=== PATIENT | female | born 1955 | race Caucasian/White ===

== ENCOUNTER → 2019-07-29 08:34 | Outpatient (BNVA) | payer MEDICAID, SELFPAY | PROVIDERS: Family Provider Family Medicine; PCP Physician Assistant Medical; Visit Provider Social Worker Clinical | DX: F33.1 Major depressive disorder, recurrent, moderate (principal) | CPT/HCPCS: 90791 ==

== ENCOUNTER → 2019-08-13 08:05 | Outpatient (BNVA) | payer MEDICAID, SELFPAY | PROVIDERS: Family Provider Family Medicine; PCP Physician Assistant Medical; Visit Provider Social Worker Clinical | DX: F33.1 Major depressive disorder, recurrent, moderate (principal) | CPT/HCPCS: 90834 ==

== ENCOUNTER → 2019-08-27 08:13 | Outpatient (BNVA) | payer MEDICAID, SELFPAY | PROVIDERS: Family Provider Family Medicine; PCP Physician Assistant Medical; Visit Provider Social Worker Clinical | DX: F33.1 Major depressive disorder, recurrent, moderate (principal) | CPT/HCPCS: 90834 ==

== ENCOUNTER → 2019-09-16 08:00 | Outpatient (BNVA) | payer MEDICAID, SELFPAY | PROVIDERS: Family Provider Family Medicine; PCP Physician Assistant Medical; Visit Provider Social Worker Clinical | DX: F33.1 Major depressive disorder, recurrent, moderate (principal) | CPT/HCPCS: 90834 ==

== ENCOUNTER → 2019-10-07 10:06 | Outpatient (BNVA) | payer MEDICAID, SELFPAY | PROVIDERS: Family Provider Family Medicine; PCP Physician Assistant Medical; Visit Provider Social Worker Clinical | DX: F33.1 Major depressive disorder, recurrent, moderate (principal) | CPT/HCPCS: 90834 ==

== ENCOUNTER → 2019-10-29 09:04 | Outpatient (BNVA) | payer MEDICAID, SELFPAY | PROVIDERS: Family Provider Family Medicine; PCP Physician Assistant Medical; Visit Provider Social Worker Clinical | DX: F33.1 Major depressive disorder, recurrent, moderate (principal); F41.1 Generalized anxiety disorder | CPT/HCPCS: 90834 ==

== ENCOUNTER 2022-06-11 04:08 | Inpatient (IN) | payer MEDICARE, MEDICAID, SELFPAY ==
[2022-06-11] VITALS (22 sets, daily range): BP systolic 105–165; BP diastolic 64–106; PULSE 81–103; RESP 13–25; TEMP 36.1–37.1; O2SAT 88–96; BMI 25.7
--- NOTE | 2022-06-11 | XR_ITS ---
WS: [id number] Left hip, C-arm fluoroscopy views, 06/11/2022 Clinical Data: OR PICS Comparison: Left hip, 06/11/2022 Findings: There are 3 orthopedic screws reducing an impacted fracture of the left femoral neck. XR/XR hip LT 2-3V wo/w pel* [id number] Impression: Internal fixation of left femoral neck fracture.
--- NOTE | 2022-06-11 04:23 | XRR_ITS ---
PROCEDURE INFORMATION: Exam: XR Left Femur Exam date and time: 06/11/2022 4:40 AM Age: 66 years old Clinical indication: Injury or trauma; Fall; Blunt trauma; Hip and thigh or upper leg; Left; Additional info: L thigh pain after fall TECHNIQUE: Imaging protocol: Radiologic exam of the left femur. Views: 2 views. COMPARISON: CT abdomen pelvis wo con [id number] 10/02/2015 6:22 PM FINDINGS: Bones/joints: Oblique left subcapital femoral neck fracture is seen with 0.2 cm medial displacement of the distal fracture fragment and 0.5 cm impaction. There is generalized osteopenia. There is no dislocation of the left femoral head from the acetabular fossa. Mild left hip degenerative changes are seen. Mild to moderate left sacroiliac joint and mild symphysis pubis degenerative changes. The remainder of the left femur shows no fractures or dislocations. The limitedly assessed left knee region appears grossly unremarkable. Soft tissues: There are no radiopaque foreign bodies. Notes: Followup radiographs may be obtained for complete assessment. XR/XR femur LT min 2V* [id number] IMPRESSION: 1. Oblique, minimally displaced, impacted left subcapital femoral neck fracture. 2. Generalized osteopenia.
--- NOTE | 2022-06-11 04:23 | W.ED.FALL ---
HPI - Fall General: Chief Complaint: Fall Stated Complaint: FALL Time Seen by Provider: 06/11/22 04:15 Source: patient History of Present Illness: 66-year-old lady who was awoken by a neighbor at 2:30 in the morning telling her her donkey had gotten out. In trying to get outside, she fell onto concrete steps on the left side and complains of left thigh pain. No head injury. No neck pain or spinal pain. No paresthesias. MD complaint: fall Onset (ago): hour(s) Fall from: standing Fall witnessed: no Place fall occurred: home Loss of consciousness: None Prolonged down time: no Symptoms prior to fall: none Context: tripped/slipped Location of injury - extremities: Left: thigh Associated symptoms-after fall: Denies abdominal pain, chest pain, headache(s) or neck pain Review of Systems Const: Denies: fever(s) Eyes: Denies: change in vision Card: Denies: chest pain Resp: Denies: dyspnea GI: Denies: abdominal pain or vomiting : Denies: flank pain Musc: Denies: neck pain or back pain Skin/Breast: Denies: rash Neuro: Denies: headache(s) PFSH ED PFSH: Social History Current gender identity: Female Physical Exam Const: COMMON NORMALS: no acute distress GENERAL APPEARANCE: cooperative; not ill appearing HENMT: COMMON NORMALS: normocephalic, atraumatic and Normal external nose present HEAD & SCALP: normocephalic and atraumatic FACE & SINUS: normal facial exam and face symmetric NOSE: Normal external nose present Eye: COMMON NORMALS: Equal, round and reactive pupils present and EOMs intact bilaterally PUPIL: Yes Equal, round and reactive pupils present Neck/C-Spine: COMMON NORMALS: full ROM GENERAL: Yes trachea midline CERVICAL SPINE: No Cervical spine tenderness Chest: CHEST: Yes Symmetrical chest wall rise Resp: COMMON NORMALS: normal respiratory effort, No use of accessory muscles and clear to auscultation bilaterally AUSCULTATION: clear to auscultation bilaterally Cardio: COMMON NORMALS: regular rate and regular rhythm RATE: regular rate RHYTHM: regular rhythm GI: COMMON NORMALS: Normal to inspection, nondistended, normoactive bowel sounds present, Soft to palpation and non-tender PALPATION: Yes Soft to palpation Extremity: NARRATIVE EXTREMITY EXAM: Exam the left lower extremity reveals tenderness over the hip anteriorly and laterally. There is pain with logroll testing/internal rotation. There is no deformity on exam. Neurovascularly intact distally. Course Vital Signs: Vital signs: Vital Signs Temperature 97.8 F 06/11/22 04:16 Pulse Rate 83 06/11/22 04:16 Respiratory Rate 16 06/11/22 04:16 Blood Pressure 153/79 06/11/22 04:16 Pulse Oximetry 93 06/11/22 04:16 Oxygen Delivery Me thod Room Air 06/11/22 04:16 MDM - Fall Medical Decision Making X-ray of the left femur reveals a likely nondisplaced subcapital femoral neck fracture. CT is pending to confirm. CT confirms nondisplaced, slightly impacted femoral neck fracture. Spoke with orthopedic surgery. They will see in consultation. Call out to hospitalist. Labs pending. CXR non acute. Hospitalist accepts. Lab Data Radiology Impressions Femur X-Ray 06/11/22 04:23 IMPRESSION: 1. Oblique, minimally displaced, impacted left subcapital femoral neck fracture. 2. Generalized osteopenia. Pelvis CT 06/11/22 05:25 IMPRESSION: Oblique, minimally displaced, impacted, left subcapital femoral fracture, as noted above. Generalized osteopenia. Chest X-Ray 06/11/22 05:27 IMPRESSION: No acute cardiopulmonary disease on the chest radiograph. Discharge Plan Discharge Patient Disposition: Admitted As Inpatient Clinical Impression: Closed fracture of left hip Qualifiers: Encounter type: initial encounter Qualified Code(s): S72.002A - Fracture of unspecified part of neck of left femur, initial encounter for closed fracture Condition: Stable Coding Level of Care Code ED [employer]yl[employer]rier for Stephanie German
--- NOTE | 2022-06-11 05:25 | CTR_ITS ---
PROCEDURE INFORMATION: Exam: CT Pelvis Without Contrast; Skeletal Exam date and time: 06/11/2022 5:36 AM Age: 66 years old Clinical indication: Injury or trauma; Fall; Blunt trauma (contusions or hematomas); Left; Hip; Additional info: Fall left hip pain TECHNIQUE: Imaging protocol: Computed tomography of the pelvis without contrast. Exam focused on the skeleton. Radiation optimization: All CT scans at this facility use at least one of these dose optimization techniques: automated exposure control; mA and/or kV adjustment per patient size (includes targeted exams where dose is matched to clinical indication); or iterative reconstruction. REPORTING DATA: Count of CT and Cardiac NM exams in prior 12 months: This patient has received 0 known CTs and 0 known cardiac nuclear medicine studies in the 12 months prior to the current study. COMPARISON: CT abdomen pelvis wo con [id number] 10/02/2015 6:22 PM RADIATION DOSE METRICS: Total DLP (mGy-cm): 473.36 FINDINGS: Stomach and bowel: Bowel: The noncontrast opacified loops of small bowel in the pelvis are unremarkable. The noncontrast opacified loops of colon in the pelvis appear unremarkable. Mild fecal material in the rectum. The lack of orally administered contrast material limits bowel assessment. Urinary bladder: The bladder is unremarkable. Reproductive: Status post prior hysterectomy. Intraperitoneal space: There is no pelvic lymphadenopathy or ascites. The inguinal regions are unremarkable. Vasculature: Moderate atherosclerotic vascular calcifications of the visualized lower abdominal aorta and iliac vessels. Bones/joints: Oblique left subcapital femoral neck fracture is seen with 0.2 cm medial displacement of the distal fracture fragment and 0.4 cm impaction (series 7, image 41). There is generalized osteopenia. Mild bilateral hip degenerative changes are seen. Moderate sacroiliac joint and symphysis pubis degenerative changes are seen. The pubic rami are normal. The sacroiliac joints appear normal. The sacrum and coccygeal osseous elements appear normal. Soft tissues: Tiny bilateral inguinal hernias are seen, containing peritoneal fat. Minimal left hip region subcutaneous soft tissue swelling is seen. The hip girdle musculature appears unremarkable. No hematoma or joint effusion seen. Other findings: If there is further clinical concern, MRI may be performed. CT/CT bony pelvis [id number] IMPRESSION: Oblique, minimally displaced, impacted, left subcapital femoral fracture, as noted above. Generalized osteopenia.
--- NOTE | 2022-06-11 05:27 | XRR_ITS ---
PROCEDURE INFORMATION: Exam: XR Chest Exam date and time: 06/11/2022 5:44 AM Age: 66 years old Clinical indication: Injury or trauma; Fall; Other: Hypoxia; Crushing; Additional info: Fall, hypoxia TECHNIQUE: Imaging protocol: Radiologic exam of the chest. Views: 1 view. COMPARISON: CR XR KUB [id number] 11/05/2015 1:34 PM FINDINGS: Lungs: Normal lung volumes. No interstitial or air space opacities seen. Left mid chest 0.6 x 0.6 cm calcified granuloma is seen. Pleural spaces: No pleural effusion. No pneumothorax. Heart/Mediastinum: Normal heart size. There is a mildly tortuous thoracic aorta. Midline trachea. Bones/joints: No acute osseous abnormalities seen. XR/XR chest 1V portable [id number] IMPRESSION: No acute cardiopulmonary disease on the chest radiograph.
[2022-06-11 06:14] LABS: Basophils # 0.1 10^3/uL (0.0-0.1); Basophils % 0.5 %; Eosinophils # 0.1 10^3/uL (0.0-0.8); Eosinophils % 0.3 %; Hematocrit 49.5 % (37.0-47.0); Hemoglobin 16.3 g/dL (11.5-15.3); Lymphocytes # 2.1 10^3/uL (0.8-4.8); Lymphocytes % 13.3 %; Mean Corpuscular HGB Conc 32.9 g/dL (30.0-36.0); Mean Corpuscular Hemoglobin 31.2 pg (28.0-34.0); Mean Corpuscular Volume 94.8 fl (81-99); Mean Platelet Volume 9.2 fL (7.4-10.4); Monocytes # 0.6 10^3/uL (0.2-0.9); Monocytes % 3.9 %; Neutrophils # 12.65 10^3/uL (1.8-7.7); Neutrophils % 81.4 %; Nucleated Red Blood Cells % 0 %; Platelet Count 256 10^3/cmm (130-400); Red Blood Count 5.22 10^6/uL (4.1-5.3); Red Cell Distribution Width 12.4 % (12.1-15.1); White Blood Count 15.5 10^3/uL (4.0-10.0)
--- NOTE | 2022-06-11 06:18 | P.HP_ITS ---
Providers/Chief Complaint Primary Care Provider: Mario Garay Chief Complaint: FALL History of Present Illness Maru Stevens is a 66 year old female with past medical history of fibromyalgia, anxiety, depression otherwise healthy female presented to the hospital today after she sustained a fall tripping on concrete blocks wearing crocs shoes. She says that the crocs is what did it. It was purely a mechanical fall and she did not have any preceding symptoms of lightheadedness nausea or dizziness. She says she got called by her neighbor that her donkey was running away and therefore she walked out. She is able to walk a block but getting short of breath and able to go up a flight of stairs without getting short of breath. Denies any history of heart disease, kidney disease, respiratory disease. Has been a smoker since age 16 and quit 3 years ago. She says she has been prescribed an albuterol inhaler in the past however is not and does not take it. Does not have a officially diagnosed history of COPD either. Has never had to use oxygen. Chest x-ray shows no acute cardiopulmonary disease however there is a left mid chest 0.6x1.[address] shows oblique minimally displaced impacted left subcapital femoral fracture. Generalized osteopenia. Dr. Smith was consulted from the ER. Medications/Allergies Home Medications Medication Instructions Recorded Confirmed Last Taken Type amitriptyline 150 mg tablet 150 mg PO DAILY 07/29/19 07/29/19 Unknown History donepezil 10 mg tablet (Aricept) 10 mg PO DAILY 07/29/19 07/29/19 Unknown History sertraline 50 mg tablet 50 mg PO DAILY 07/29/19 07/29/19 Unknown History tramadol 50 mg tablet 50 mg PO DAILY 07/29/19 07/29/19 Unknown History Allergies Allergy/AdvReac Type Severity Reaction Status Date / Time Penicillins Allergy Severe breathing Verified 07/29/19 13:21 affects sulfamethoxazole Allergy Severe Pancreas Verified 07/29/19 13:22 [From Bactrim] trimethoprim [From Bactrim] Allergy Severe Pancreas Verified 07/29/19 13:22 aspirin Allergy Intermediate Stomach Verified 07/29/19 13:20 issues Sulfa (Sulfonamide Allergy Mild Rash Verified 07/29/19 13:18 Antibiotics) PFSH Acute PFSH: Social History Current gender identity: Female Vitals/I&O/Wt Last Vital Signs Temp 97.8 F 06/11/22 04:16 Pulse 83 06/11/22 04:16 Resp 16 06/11/22 04:16 BP 153/79 06/11/22 04:16 Pulse Ox 93 06/11/22 04:16 O2 Del Method Room Air 06/11/22 04:16 Weight last 48 hrs Weight 68.039 kg Physical Exam Narrative: General: Alert oriented x3, patient seen laying in bed appearing comfortable at this time, no acute distress. HEENT: Normocephalic, atraumatic, EOMI, Cardio: Regular rate rhythm, normal S1-S2, Respiratory: Good bilateral air entry, no wheezes no rhonchi appreciated, clear to auscultation bilaterally GI: Abdomen soft, nontender, nondistended, bowel sounds + Extremities:no edema, no cyanosis, has a 3 cm linear deep laceration on left a nterior tamayo and another smaller wound right below it. Data 06/11/22 06:10 06/11/22 06:10 A&P Assessment and plan (1) Closed fracture of left hip: Qualifiers: Encounter type: initial encounter Qualified Code(s): S72.002A - Fracture of unspecified part of neck of left femur, initial encounter for closed fracture Plan #Left femoral fracture #Anxiety, depression #Fibromyalgia #History of smoking ? Morphine 2 mg every 4 hours as needed for pain ? N.p.o. for potential surgery today ? Orthopedic surgery consulted from ER. Dr. Smith will see patient in consultation ? Denies a history of kidney disease, insulin use, diabetes, heart disease. Able to do greater than 4 METS on a daily basis. ? Continue donepezil, sertraline. I will hold amitriptyline ? Heparin SQ twice daily for DVT prophylaxis -Baseline EKG did not show any acute ischemic changes ? Chest x-ray reviewed ? CBC reviewed. CMP pending at this time. I will order PT/INR ? PT OT after surgery Full code She says her daughter Summer Julien may obtain any kind of medical information she asks for and should be updated if she calls however in case she is unable to make her own medical decisions she would like to appoint her sister Vane Joseph. [phone]. Her sister does not live in town. Attestations Medical Necessity Statement*: Greater than 2 midnight stay for repair of left femoral fracture. Other Coding Information Focused coding review requested Diagnoses Closed fracture of left hip S72.002A Encounter type: initial encounter
[2022-06-11 06:33] LABS: Alanine Aminotransferase 36 U/L (0-33); Albumin Level 4.5 g/dL (3.5-5.2); Alkaline Phosphatase 145 U/L (35-105); Anion Gap 13.4 (5-19); Aspartate Amino Transferase 41 U/L (0-32); Blood Urea Nitrogen 9 mg/dL (8-23); C Reactive Protein 7.5 mg/L (0.0-4.9); Calcium 9.1 mg/dL (8.5-10.5); Carbon Dioxide 25 mmol/L (22-29); Chloride 99 mmol/L (98-107); Creatinine Clr Calc Pharmacy 59.0628; Globulin 2.8 g/dL (1.3-4.6); Glomerular Filtration Rate 62.8 mL/min (90-130); Glucose 108 mg/dL (65-115); Osmolality Calculated 277 mOsm/kg (285-295); Potassium 3.4 mmol/L (3.5-5.1); Sodium 134 mmol/L (136-145); Total Bilirubin 0.5 mg/dL (0.15-1.2); Total Protein 7.3 g/dL (6.6-8.7)
[2022-06-11] MEDS: morphine 4 mg/mL SDV 1 mL IVP (06:35)
--- NOTE | 2022-06-11 07:57 | PC.NURSE ---
PT REFUSES [facility] CATH INSERTION, EDUC. PT OF BENEFITS OF [facility]. PT IS ALSO REFUSING [facility] CATH DURING AND AFTER SURGERY. PT ADAMANTLY REFUSES.
--- NOTE | 2022-06-11 08:37 | ECG_ITS ---
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 Measurements Intervals [place] Rate: 92 P: 147 PA: 247 QRS: 6 QRSD: 121 T: 149 QT: 375 QTc: 465 Interpretive Statements ECTOPIC ATRIAL RHYTHM WITH FIRST DEGREE AV BLOCK MODERATE INTRAVENTRICULAR CONDUCTION DELAY [110+ ms QRS DURATION] NONSPECIFIC T-WAVE ABNORMALITY No previous ECG available for comparison Electronically Signed On 06-11-2022 10:29:08 CDT by Neftali Iraheta M.D. [email or web address]
[2022-06-11] MEDS: heparin 5,000 unit/mL INJ 1 mL 5000 UNIT SUBCUT ×2 (09:21→21:27)
[2022-06-11] MEDS: sodium chloride 0.9% 1,000 ML 75 ML IV ×2 (09:28→21:28)
[2022-06-11] MEDS: sodium chloride 0.9% 1,000 ML 75 ML (12:29)
--- NOTE | 2022-06-11 12:33 | PM.CONSULT ---
Providers/Reason For Consult Consulting Physician/Specialty*: Omayra Lloyd MD Reason for Consult*: Left Subcapital Hip Fracture Requesting Physician: Everardo Pack MD Attending Physician: Allen Mcdowell MD Primary Care Provider: Mario Garay History of Present Illness History of Present Illness Maru Stevens is a 66 year old female who was in her usual state of health, which includes a history of fibromyalgia, depression, and anxiety, when she fell on some concrete blocks earlier this morning. The patient notes it was a mechanical fall without preceding dizziness or other reason for her fall. Reportedly, she was called by her neighbor that her donkey was running away, and she walked outside in [facility] and tripped falling suffering a left subcapital hip fracture which is impacted. She presented to the emergency department with minimal other complaints. Review of Systems Const: Denies: fever(s) Eyes: Denies: change in vision Card: Denies: chest pain Resp: Denies: dyspnea GI: Denies: abdominal pain or vomiting : Denies: flank pain Musc: Denies: neck pain or back pain Skin/Breast: Denies: rash Neuro: Denies: headache(s) Medications/Allergies Home Medications Medication Instructions Recorded Confirmed Last Taken Type amitriptyline 150 mg tablet 300 mg PO BEDTIME 07/29/19 06/11/22 Unknown History tramadol 50 mg tablet 50 mg PO Q6H PRN Pain 07/29/19 06/11/22 Unknown History biotin 5 mg capsule 5 mg PO DAILY 06/11/22 06/11/22 Unknown History cholecalciferol (vitamin D3) 50 50 mcg PO DAILY 06/11/22 06/11/22 Unknown History mcg (2,000 unit) capsule (Vitamin D3) cyclobenzaprine 5 mg tablet 5 mg PO TID PRN Pain 06/11/22 06/11/22 Unknown History famotidine 20 mg tablet 20 mg PO BID 06/11/22 06/11/22 Unknown History memantine 5 mg tablet 5 mg PO BID 06/11/22 06/11/22 Unknown History vitamin E 268 mg (400 unit) capsule 268 mg PO DAILY 06/11/22 06/11/22 Unknown History Allergies Allergy/AdvReac Type Severity Reaction Status Date / Time Penicillins Allergy Severe breathing Verified 06/11/22 07:39 affects sulfamethoxazole Allergy Severe Pancreas Verified 06/11/22 07:39 [From Bactrim] trimethoprim [From Bactrim] Allergy Severe Pancreas Verified 06/11/22 07:39 aspirin Allergy Intermediate Stomach Verified 06/11/22 07:39 issues Sulfa (Sulfonamide Allergy Mild Rash Verified 06/11/22 07:39 Antibiotics) Current Medications Generic Name Dose Route Start Last Admin Trade Name Michaelq PRN Reason Stop Dose Admin Donepezil HCl 10 mg 06/11/22 09:00 06/11/22 09:23 Donepezil 5 Mg Tablet PO Not Given DAILY SETH Heparin Sodium (Porcine) 5,000 unit 06/11/22 07:15 06/11/22 09:21 Heparin 5,000 Unit/Ml Inj 1 Ml SUBCUT 5,000 unit Q12H SETH Administration Sodium Chloride 1,000 mls @ 75 mls/hr 06/11/22 07:15 06/11/22 09:28 Sodium Chloride 0.9% IV 75 mls/hr .[id number] SETH Administration Sertraline HCl 50 mg 06/11/22 09:00 06/11/22 09:23 Sertraline 50 Mg Tablet PO Not Given DAILY SETH PFSH Acute PFSH: Social History Current gender identity: Female Vitals/I&O/Wt Last Vital Signs Temp 98.5 F 06/11/22 08:00 Pulse 81 06/11/22 08:40 Resp 16 06/11/22 08:40 BP 156/83 06/11/22 08:00 Pulse Ox 95 06/11/22 08:40 O2 Del Method Room Air 06/11/22 08:40 Weight last 48 hrs Weight 146 lb 12.8 oz Weight 150 lb Physical Exam Const: COMMON NORMALS: no acute distress, average body habitus, patient oriented x3 and alert GENERAL APPEARANCE: cooperative and comfortable ORIENTATION/CONSCIOUSNESS: Yes awake HENMT: COMMON NORMALS: normocephalic and atraumatic HEAD & SCALP: normocephalic and atraumatic Eye: GENERAL EYE: appearance normal, both eyes and all related structures Chest: COMMONS NORMALS: normal inspection of the chest Resp: COMMON NORMALS: normal respiratory effort EFFORT & INSPECTION: Yes able to speak in complete sentences and Yes symmetric chest movement Extremity: LEFT LOWER EXTREMITY: Yes hip joint Left hip: Yes inspection (No significant ecchymosis), Yes ROM (Not evaluated due to pain) and Yes neurovascular exam (Intact distally) and Yes lower leg (Anterior abrasion secondary to her fall) Neuro: COMMON NORMALS: patient oriented x3 SENSORIUM/ORIENTATION: Yes alert Psych: COMMON NORMALS: mental status grossly normal APPEARANCE: Yes grossly normal ATTITUDE: Yes calm and Yes engaged ATTENTION/CONCENTRATION: Yes attention grossly intact Skin: COMMON NORMALS: no rashes or lesions noted GENERAL SKIN EXAM: no rashes or lesions noted Data 06/11/22 06:10 06/11/22 06:10 Xray Ortho: My impression: I have personally reviewed 4 views of the patient's left femur. The patient demonstrates findings consistent with a valgus impacted left subcapital hip fracture with minimal displacement. A&P Assessment and plan (1) Subcapital fracture of left hip: Patient was admitted through the emergency department early this morning. She was found at that time to have an abrasion to the anterior aspect of her tibia and also an impacted valgus left subcapital hip fracture. She was admitted to the hospitalist team and presents now for definitive surgical intervention. Patient was seen and evaluated regarding her left subcapital hip fracture. Risks and complications were discussed. Consents were signed. The patient understands the surgical procedure. Coding Level of Care Code Acute Code for [facility] Diagnoses Subcapital fracture of left hip S72.012A
--- NOTE | 2022-06-11 12:40 | PC.NURSE ---
PT LEFT M/S FLOOR AT APPROX 1115
[2022-06-11] MEDS: CELEcoxib 200 mg Capsule 400 MG PO ×2 (12:57)
[2022-06-11] MEDS: clindamycin 600 MG/50 ML PREMIX 100 MG IV ×2 (12:58→21:28)
--- NOTE | 2022-06-11 12:59 | P.ANESASSM_ITS ---
Pre-Anesthetic Assessment Height/Weight: Height 1.63 m Weight 66.587 kg Temp Pulse Resp BP Pulse Ox O2 Del Method 98.5 F 81 16 156/83 95 Room Air 06/11/22 08:00 06/11/22 08:40 06/11/22 08:40 06/11/22 08:00 06/11/22 08:40 06/11/22 08:40 Preop Diagnosis: Left subcapital hip fracture Operation Date: 06/11/22 13:30 Proposed Procedures p Open Reduction Hip(Left) - Omayra Lloyd MD Familial anesthetic complications: none Was Beta Allison taken within 24 hours: N/A Was Clonidine taken within 24 hours: N/A Social Tobacco and No alcohol Exam alert, oriented x 3 and regular rate & rhythm Airway Submandibular: within normal limits Cervical ROM: within normal limits Mallampati: Class II Dentition: false Pulmonary Chronic Obstructive Pulmonary Disease GI Gastroesophageal Reflux Disease Neuropsych Cerebrovascular Accident (h/o 10yrs ago, no deficit) Anesthetic Plan ASA status: 3 Anesthesia: General Medications/Allergies Home Medications Medication Instructions Recorded Confirmed Last Taken Type amitriptyline 150 mg tablet 300 mg PO BEDTIME 07/29/19 06/11/22 Unknown History tramadol 50 mg tablet 50 mg PO Q6H PRN Pain 07/29/19 06/11/22 Unknown History biotin 5 mg capsule 5 mg PO DAILY 06/11/22 06/11/22 Unknown History cholecalciferol (vitamin D3) 50 50 mcg PO DAILY 06/11/22 06/11/22 Unknown History mcg (2,000 unit) capsule (Vitamin D3) cyclobenzaprine 5 mg tablet 5 mg PO TID PRN Pain 06/11/22 06/11/22 Unknown History famotidine 20 mg tablet 20 mg PO BID 06/11/22 06/11/22 Unknown History memantine 5 mg tablet 5 mg PO BID 06/11/22 06/11/22 Unknown History vitamin E 268 mg (400 unit) capsule 268 mg PO DAILY 06/11/22 06/11/22 Unknown History Allergies Allergy/AdvReac Type Severity Reaction Status Date / Time Penicillins Allergy Severe breathing Verified 06/11/22 07:39 affects sulfamethoxazole Allergy Severe Pancreas Verified 06/11/22 07:39 [From Bactrim] trimethoprim [From Bactrim] Allergy Severe Pancreas Verified 06/11/22 07:39 aspirin Allergy Intermediate Stomach Verified 06/11/22 07:39 issues Sulfa (Sulfonamide Allergy Mild Rash Verified 06/11/22 07:39 Antibiotics) Current Medications Generic Name Dose Route Start Last Admin Trade Name Minnie PRN Reason Stop Dose Admin Donepezil HCl 10 mg 06/11/22 09:00 06/11/22 09:23 Donepezil 5 Mg Tablet PO Not Given DAILY SETH Heparin Sodium (Porcine) 5,000 unit 06/11/22 07:15 06/11/22 09:21 Heparin 5,000 Unit/Ml Inj 1 Ml SUBCUT 5,000 unit Q12H SETH Administration Sodium Chloride 1,000 mls @ 75 mls/hr 06/11/22 07:15 06/11/22 09:28 Sodium Chloride 0.9% IV 75 mls/hr .[id number] SETH Administration Clindamycin HCl/Dextrose 600 mg in 50 mls @ 100 mls/hr 06/11/22 12:39 06/11/22 12:58 Cleocin IV 06/11/22 13:08 100 mls/hr [employer] ONE Administration Protocol Sertraline HCl 50 mg 06/11/22 09:00 06/11/22 09:23 Sertraline 50 Mg Tablet PO Not Given DAILY SETH PFSH Anesthesia Social History Current gender identity: Female Data Anesthesia 06/11/22 06:10 06/11/22 06:10 Short CBC 06/11/22 Range/Units 06:10 WBC 15.5 H (4.0-10.0) 10^3/uL Hgb 16.3 H (11.5-15.3) g/dL Hct 49.5 H (37.0-47.0) % MCV 94.8 (81-99) fl Plt Count 256 (130-400) 10^3/cmm Neut % (Auto) 81.4 % Neut # (Auto) 12.65 H (1.8-7.7) 10^3/uL BMP 06/11/22 06:10 Sodium 134 L Potassium 3.4 L Chloride 99 Carbon Dioxide 25 BUN 9 Creatinine 0.9 Glucose 108 Calcium 9.1 Liver Function 06/11/22 Range/Units 06:10 Total Bilirubin 0.5 (0.15-1.2) mg/dL AST 41 H (0-32) U/L ALT 36 H (0-33) U/L Alkaline Phosphatase 145 H (35-105) U/L Albumin 4.5 (3.5-5.2) g/dL Coags 06/11/22 06:10 C-Reactive Protein 7.5 H Cardiac Studies: No Data to Display
[2022-06-11] MEDS: vancomycin 1,000 MG SDV 1000 MG XX (13:48)
[2022-06-11] MEDS: lidocaine-epi 1% 20 mL INJ INJECTION (14:15)
--- NOTE | 2022-06-11 14:26 | P.OP_ITS ---
Operative Report Date of procedure: June 11, 2022 Pre-op diagnosis: Valgus impacted left subcapital hip fracture Post-op diagnosis: Valgus impacted left subcapital hip fracture Procedure done: Open reduction internal fixation left valgus impacted subcapital hip fracture with cannulated screws x3 Implants: Cannulated screws x3: 90 mm, and 2 x 95 mm Specimens removed/disposition: None Pathology: none sent Surgeon: Omayra Lloyd Special Machine Stitcher: None Anesthesia: General (Per LMA, ASA 3) Estimated blood loss (mL): 20 IV fluids (mL): 600 Urine output (mL): 700 Complications: None Findings: Valgus impacted subcapital left hip fracture Condition: stable Disposition: PACU (Then return to floor for postoperative rehabilitation and pain management) Brief History: Maru Stevens is a 66 year old female who was in her usual state of health, which includes a history of fibromyalgia, depression, and anxiety, when she fell on some concrete blocks earlier this morning.? The patient notes it was a mechanical fall without preceding dizziness or other reason for her fall.? Reportedly, she was called by her neighbor that her donkey was running away, and she walked outside in [facility] and tripped falling suffering a left subcapital hip fracture which is impacted.? She presented to the emergency department with minimal other complaints. It was discussed with the patient that she would require a open reduction internal fixation with cannulated screws. Risks and complications were discussed. The patient was consented for the surgery and signed consent. She was in agreement with the treatment plan. Procedure: Patient is brought to the operating theater and after undergoing adequate general anesthesia per LMA, ASA 3, the patient was transferred to the fracture table. Fluoroscopy was positioned so that we could visualize the fracture in AP and lateral planes. Maintenance of position of was confirmed. Being satisfied with the position of the femoral head, the leg was then prepped with DuraPrep. A shower curtain style drape was utilized to drape out the patient's left lower extremity. Patient's leg was marked in the preoperative holding area and these markings were visualized. A surgical pause was performed. We confirmed administration of preoperative IV clindamycin as well as the site and side of surgery along with availability of equipment. Fluoroscopy was utilized and an incision was made in appropriate position to allow placement of 3 cannulated screws using the Rocco gun as a guide. The most inferior of the inverted triangle wire was placed first. Optimal position was determined with fluoroscopy in AP and lateral. The remaining guidewires were then placed also under fluoroscopic guidance in AP and lateral planes. The Rocco gun was removed and the length of guidewires was measured. The cannulated screws were then placed over the guidewire. Guidewires were advanced to appropriate position and subsequently hand tightened. Position of the screws was confirmed in AP and lateral. Being satisfied with the position of the screws, guidewires were removed. AP and lateral images were obtained utilizing fluoroscopy. Being satisfied the wound was irrigated, closure was then accomplished with 0 Vicryl in the fascial tissues and 2-0 Monocryl in the subcutaneous tissues. Skin was closed with a running 3-0 Monocryl. The wound was then injected with 20 cc of bupivacaine and lidocaine mixed with epinephrine. Sterile dressing was then placed consisting of Dermabond, Steri-Strips and OpSite. The patient was returned the recovery room in satisfactory condition. There were no complications. There were no specimens. Related Problem List Diagnoses (1) Subcapital fracture of left hip:
--- NOTE | 2022-06-11 14:36 | ANE.PACU2 ---
Inpatient post-anesthesia follow up: Vital signs: Temperature 97.0 F Pulse Rate 82 Respiratory Rate 13 Blood Pressure 138/73 Pulse Oximetry 94 Oxygen Delivery Me thod Simple Mask Oxygen Flow Rate 6 Fraction of Inspir ed Oxygen Hydration adequate: Yes Nausea and vomiting: No Pain level: 0 Mental status: Baseline
[2022-06-11] MEDS: calcium carb-vit d 600mg/400unit 1 Tablet 1 EACH PO (18:28)
[2022-06-11] MEDS: acetaminophen 500 mg Tablet 1000 MG PO (18:28)
[2022-06-11] MEDS: docusate sodium 100 mg Capsule PO (18:28)
[2022-06-11] MEDS: oxyCODONE 5 mg IR Tab/Cap PO (21:28)
[2022-06-12] VITALS (11 sets, daily range): BP systolic 105–146; BP diastolic 64–76; PULSE 68–89; RESP 16–20; TEMP 36.4–37.1; O2SAT 90–99
[2022-06-12] MEDS: acetaminophen 500 mg Tablet 1000 MG PO ×3 (01:07→18:04)
[2022-06-12] MEDS: enoxaparin 30 mg/0.3 mL Syringe SUBCUT (03:33)
[2022-06-12] MEDS: clindamycin 600 MG/50 ML PREMIX 100 MG IV ×2 (03:35→12:52)
[2022-06-12 04:36] LABS: Basophils % 0.1 %; Hematocrit 39.9 % (37.0-47.0); Hemoglobin 13.2 g/dL (11.5-15.3); Lymphocytes # 1.4 10^3/uL (0.8-4.8); Lymphocytes % 13.6 %; Mean Corpuscular HGB Conc 33.1 g/dL (30.0-36.0); Mean Corpuscular Hemoglobin 31.3 pg (28.0-34.0); Mean Corpuscular Volume 94.5 fl (81-99); Mean Platelet Volume 9.8 fL (7.4-10.4); Monocytes # 0.6 10^3/uL (0.2-0.9); Monocytes % 5.2 %; Neutrophils # 8.52 10^3/uL (1.8-7.7); Neutrophils % 80.6 %; Nucleated Red Blood Cells % 0 %; Platelet Count 217 10^3/cmm (130-400); Red Blood Count 4.22 10^6/uL (4.1-5.3); Red Cell Distribution Width 12.3 % (12.1-15.1); White Blood Count 10.6 10^3/uL (4.0-10.0)
[2022-06-12 05:01] LABS: Anion Gap 11.7 (5-19); Blood Urea Nitrogen 9 mg/dL (8-23); Calcium 8.2 mg/dL (8.5-10.5); Carbon Dioxide 24 mmol/L (22-29); Chloride 100 mmol/L (98-107); Glucose 112 mg/dL (65-115); Osmolality Calculated 273 mOsm/kg (285-295); Potassium 3.7 mmol/L (3.5-5.1); Sodium 132 mmol/L (136-145)
[2022-06-12] MEDS: docusate sodium 100 mg Capsule PO ×2 (08:51→18:04)
[2022-06-12] MEDS: multivitamin therapeutic Tablet 1 TAB PO (08:51)
[2022-06-12] MEDS: calcium carb-vit d 600mg/400unit 1 Tablet 1 EACH PO ×2 (08:51→18:04)
[2022-06-12] MEDS: sodium chloride 0.9% 1,000 ML 75 ML IV (08:53)
--- NOTE | 2022-06-12 14:12 | PM.PN ---
Subjective Subjective: Patient was seen and examined this morning, she was complaining of left lower extremity pain rated 6 out of 10, no other complaint. Medications: Medication Review Details: Generic Name Dose Route Start Last Admin Trade Name Minnie PRN Reason Stop Dose Admin Acetaminophen 1,000 mg 06/11/22 16:00 06/12/22 08:51 Acetaminophen 50 0 Mg Tablet PO 1,000 mg Q8H SETH Administration Calcium Carbonate 1 each 06/11/22 18:00 06/12/22 08:51 Calcium Carb-Vit D 600mg/400unit 1 Tablet PO 1 each BID SETH Administration Docusate Sodium 100 mg 06/11/22 18:00 06/12/22 08:51 Docusate Sodium 100 Mg Capsule PO 100 mg BID SETH Administration Donepezil HCl 10 mg 06/11/22 09:00 06/12/22 08:51 Donepezil 5 Mg T ablet PO Not Given DAILY SETH Enoxaparin Sodium 30 mg 06/12/22 02:30 06/12/22 03:33 Enoxaparin 30 Mg /0.3 Ml Syringe SUBCUT 30 mg Q24H SETH Administration Sodium Chloride 1,000 mls @ 75 ml s/hr 06/11/22 07:15 06/12/22 08:53 Sodium Chloride 0.9% IV 75 mls/hr .[id number] SETH Administration Multivitamins Ther apeutic 1 tab 06/12/22 09:00 06/12/22 08:51 Multivitamin The rapeutic Tablet PO 1 tab DAILY SETH Administration Oxycodone HCl 5 - 10 mg 06/11/22 15:43 06/11/22 21:28 Oxycodone 5 Mg I r Tab/Cap PO 5 mg Q4H PRN Administration MODERATE TO SEVER E PAIN Sertraline HCl 50 mg 06/11/22 09:00 06/12/22 08:51 Sertraline 50 Mg Tablet PO Not Given DAILY SETH Vitals/I&O/Wt Last Vital Signs Temp 97.7 F 06/12/22 12:00 Pulse 76 06/12/22 12:00 Resp 18 06/12/22 12:00 BP 109/64 06/12/22 12:00 Pulse Ox 95 06/12/22 12:00 O2 Del Method Nasal Cannula 06/12/22 12:00 O2 Flow Rate 2 06/12/22 08:38 06/11/22 06/12/22 06/12/22 22:59 06:59 14:59 Intake Total 900 / 1560 100 / 1660 1146. / 1146.25 Output Total 600 / 2019 600 / 2620 Balance 300 / -460 -500 / -960 1146.25 / 1146.25 Weight last 48 hrs Weight 66.587 kg Weight 68.039 kg Physical Exam Const: COMMON NORMALS: patient oriented x3 HENMT: COMMON NORMALS: normocephalic and atraumatic HEAD & SCALP: normocephalic and atraumatic Resp: COMMON NORMALS: clear to auscultation bilaterally AUSCULTATION: clear to auscultation bilaterally Cardio: COMMON NORMALS: regular rate, regular rhythm, S1 normal heart sound present, S2 normal heart sound present, No gallops present (Cardio), No murmurs present (Cardio), No rub (Cardio) and Peripheral pulses 2+ throughout RATE: regular rate RHYTHM: regular rhythm HEART SOUNDS: S1 normal heart sound present and S2 normal heart sound present PERIPHERAL PULSES: Peripheral pulses 2+ throughout GI: COMMON NORMALS: Normal to inspection, nondistended, normoactive bowel sounds present, Soft to palpation, non-tender, No hepatosplenomegaly present and no masses AUSCULTATION: Yes normoactive bowel sounds PALPATION: Yes Soft to palpation and Yes No hepatosplenomegaly present RECTAL EXAM: deferred Extremity: COMMON NORMALS: no clubbing, cyanosis or edema and no pedal edema Neuro: COMMON NORMALS: patient oriented x3 Urinary Catheter Management: Mina: Cath Placed During This Visit: yes Reason for Continuing Indwelling Catheter: Other Urinary Catheter Date of Insertion: 06/11/22 Urinary Catheter Time of Insertion: 13:25 Data 06/12/22 03:30 06/12/22 03:30 A&P Assessment and plan (1) Closed fracture of left hip: Qualifiers: Encounter type: initial encounter Qualified Code(s): S72.002A - Fracture of unspecified part of neck of left femur, initial encounter for closed fracture Plan 66 year old female with past medical history of fibromyalgia, anxiety, depression was admitted for the management of left femoral fracture after she experienced a mechanical fall on concrete blocks. Assessment: #Left femoral fracture CT scan pelvis: Oblique, minimally displaced, impacted, left subcapital femoral fracture S/p: ORIF,left valgus impacted subcapital hip fracture with cannulated screws x3. Pain control Bowel regimen Orthopedic is primary PT on board DVT prophylaxis on Lovenox CODE STATUS full code Attestations Medical Necessity Statement*: Patient is to be in hospital for the management of left femoral fracture. Coding Level of Care Code 75453 Diagnoses Closed fracture of left hip S72.002A Encounter type: initial encounter
[2022-06-12] MEDS: oxyCODONE 5 mg IR Tab/Cap PO ×2 (15:44→20:23)
--- NOTE | 2022-06-12 19:31 | P.PN_ITS ---
Subjective Subjective: Patient is up in a chair, her Mina has not been removed as she did have retention at the time she was brought to the operating room. She is working with physical therapy. Vitals/I&O/Wt Last Vital Signs Temp 97.6 F 06/12/22 15:43 Pulse 76 06/12/22 15:43 Resp 18 06/12/22 15:44 BP 146/75 06/12/22 15:43 Pulse Ox 95 06/12/22 15:44 O2 Del Method Nasal Cannula 06/12/22 15:43 O2 Flow Rate 2 06/12/22 08:38 06/12/22 06/12/22 06/12/22 06:59 14:59 22:59 Intake Total 100 / 1660 1146.25 / 1146.25 120 / 1266.25 Output Total 600 / 2620 900 / 900 Balance -500 / -960 1146.25 / 1146.25 -780 / 366.25 Weight last 48 hrs Weight 146 lb 12.8 oz Weight 150 lb Physical Exam Const: COMMON NORMALS: no acute distress, average body habitus, patient oriented x3 and alert GENERAL APPEARANCE: cooperative and comfortable ORIENTATION/CONSCIOUSNESS: Yes awake HENMT: COMMON NORMALS: normocephalic and atraumatic HEAD & SCALP: normocephalic and atraumatic Eye: GENERAL EYE: appearance normal, both eyes and all related structures Chest: COMMONS NORMALS: normal inspection of the chest Resp: COMMON NORMALS: normal respiratory effort EFFORT & INSPECTION: Yes able to speak in complete sentences and Yes symmetric chest movement Extremity: LEFT LOWER EXTREMITY: Yes hip joint (No complaints of significant pain.) Left hip: Yes ROM (Not evaluated.) and Yes neurovascular exam (No evidence of DVT.) Neuro: COMMON NORMALS: patient oriented x3 SENSORIUM/ORIENTATION: Yes alert Psych: COMMON NORMALS: mental status grossly normal APPEARANCE: Yes grossly normal ATTITUDE: Yes calm and Yes engaged ATTENTION/CONCENTRATION: Yes attention grossly intact Skin: COMMON NORMALS: no rashes or lesions noted GENERAL SKIN EXAM: no rashes or lesions noted Urinary Catheter Management: Mina: Cath Placed During This Visit: yes Reason for Continuing Indwelling Catheter: Other Urinary Catheter Date of Insertion: 06/11/22 Urinary Catheter Time of Insertion: 13:25 Data 06/12/22 03:30 06/12/22 03:30 A&P Assessment and plan (1) Subcapital fracture of left hip: Yesterday, the patient underwent open reduction internal fixation of a subcapital hip fracture which was minimally displaced and had valgus impaction. She tolerated the procedure well. She is working with physical therapy. Plans are that she will be able to return home weightbearing as tolerated. Attestations Medical Necessity Statement*: Continued physical therapy following ORIF hip fracture Coding Level of Care Code Acute Code for [facility] Diagnoses Subcapital fracture of left hip S72.012A
[2022-06-13] VITALS (7 sets, daily range): BP systolic 120–187; BP diastolic 74–78; PULSE 70–78; RESP 16–18; TEMP 36.6–36.9; O2SAT 90–97
[2022-06-13] MEDS: acetaminophen 500 mg Tablet 1000 MG PO ×2 (00:51→08:57)
[2022-06-13] MEDS: enoxaparin 30 mg/0.3 mL Syringe SUBCUT (03:12)
[2022-06-13] MEDS: oxyCODONE 5 mg IR Tab/Cap PO (08:56)
[2022-06-13] MEDS: docusate sodium 100 mg Capsule PO (08:57)
[2022-06-13] MEDS: multivitamin therapeutic Tablet 1 TAB PO (08:58)
[2022-06-13] MEDS: sertraline 50 mg Tablet PO (08:58)
[2022-06-13] MEDS: calcium carb-vit d 600mg/400unit 1 Tablet 1 EACH PO (08:58)
[2022-06-13] MEDS: donepezil 5 MG Tablet 10 MG PO (08:58)
--- NOTE | 2022-06-13 10:48 | PM.DCS ---
Discharge Providers Date of Admission: 06/11/22 06:03 Date of Discharge: June 13, 2022 Attending Provider at Admission: Yoana Lopez MD Attending Provider at Discharge: Martina Vieyra MD Primary Care Provider: Mario Garay Diagnoses at Discharge Discharge Diagnosis (1) Subcapital fracture of left hip: Status: Acute Reason for Visit Reason for Visit: FALL Hospital Course Hospital Course Maru Stevens is a 66 year old female who was in her usual state of health, which includes a history of fibromyalgia, depression, and anxiety, when she fell on some concrete blocks while running after her donkey. She suffered a subcapital fracture of the left hip. She underwent Open reduction internal fixation left valgus impacted subcapital hip fracture with cannulated screws x3 on 06/11/22. Tolerated the procedure well. She has intermittent pain which is currently well controlled on pain medications. She tolerated procedure well. Evaluted by PT - underwentPatient is currently independent with bed mobility, sit to stand transfers and ambulation with front wheel walker over 50 ft. Walker has been arranged at discharged. Home exercise regimen recommended. [facility] arranged. Physical Exam Narrative: General: No acute distress, AO x3 HEENT: PERRLA, pupils bilaterally equal and reactive, pallors not present Chest: Normal vesicular breath sounds, no added sounds, equal good air entry bilaterally CVS: S1-S2 regular, no murmurs, no tachycardia, no gallops, no rubs Abdomen: Soft, nontender, no organomegaly, bowel sounds present Neuro: No focal deficits, no facial deformity, AO x3, power 5/5 in all limbs Urinary Catheter Management: Mina: Cath Placed During This Visit: yes, but has since been removed by the nurse Reason for Continuing Indwelling Catheter: Acute Urinary Retention or Obstruction Urinary Catheter Date of Insertion: 06/11/22 Urinary Catheter Time of Insertion: 13:25 Date Urinary Catheter Removed: 06/13/22 Time Urinary Catheter Discontinued: 07:07 Discharge Data Studies Completed and Pending Completed Studies During Hospitalization Category Date Time Status CT pelvis wo bone [CT bony pelvis 11165] Stat Cat Scan 06/11/22 05:25 Completed XR chest 1V portable [id number] Stat Exams 06/11/22 05:27 Completed XR femur LT min 2V* [id number] Stat Exams 06/11/22 04:23 Completed XR hip LT 2-3V wo/w pel* [id number] Routine Exams 06/11/22 Completed Pending at discharge Category Date Time Status Urinalysis Stat Lab 06/11/22 05:27 Uncollected Radiology Impressions Hip/Pelvis X-Ray 06/11/22 00:00 Impression: Internal fixation of left femoral neck fracture. Femur X-Ray 06/11/22 04:23 IMPRESSION: 1. Oblique, minimally displaced, impacted left subcapital femoral neck fracture. 2. Generalized osteopenia. Pelvis CT 06/11/22 05:25 IMPRESSION: Oblique, minimally displaced, impacted, left subcapital femoral fracture, as noted above. Generalized osteopenia. Chest X-Ray 06/11/22 05:27 IMPRESSION: No acute cardiopulmonary disease on the chest radiograph. Laboratory Results WBC 10.6 10^3/uL (4.0-10.0) H 06/12/22 03:30 RBC 4.22 10^6/uL (4.1-5.3) 06/12/22 03:30 Hgb 13.2 g/dL (11.5-15.3) 06/12/22 03:30 Hct 39.9 % (37.0-47.0) 06/12/22 03:30 MCV 94.5 fl (81-99) 06/12/22 03:30 MCH 31.3 pg (28.0-34.0) 06/12/22 03:30 MCHC 33.1 g/dL (30.0-36.0) 06/12/22 03:30 RDW 12.3 % (12.1-15.1) 06/12/22 03:30 Plt Count 217 10^3/cmm (130-400) 06/12/22 03:30 MPV 9.8 fL (7.4-10.4) 06/12/22 03:30 Neut % (Auto) 80.6 % 06/12/22 03:30 Lymph % (Auto) 13.6 % 06/12/22 03:30 [place] % (Auto) 5.2 % 06/12/22 03:30 Eos % (Auto) 0.0 % 06/12/22 03:30 Baso % (Auto) 0.1 % 06/12/22 03:30 Neut # (Auto) 8.52 10^3/uL (1.8-7.7) H 06/12/22 03:30 Lymph # (Auto) 1.4 10^3/uL (0.8-4.8) 06/12/22 03:30 [place] # (Auto) 0.6 10^3/uL (0.2-0.9) 06/12/22 03:30 Eos # (Auto) 0.0 10^3/uL (0.0-0.8) 06/12/22 03:30 Baso # (Auto) 0.0 10^3/uL (0.0-0.1) 06/12/22 03:30 Nucleated RBC % (auto) 0 % 06/12/22 03:30 Nucleated RBCs # 0.0 /100WBC 06/12/22 03:30 Sodium 132 mmol/L (136-145) L 06/12/22 03:30 Potassium 3.7 mmol/L (3.5-5.1) 06/12/22 03:30 Chloride 100 mmol/L (98-107) 06/12/22 03:30 Carbon Dioxide 24 mmol/L (22-29) 06/12/22 03:30 Anion Gap 11.7 (5-19) 06/12/22 03:30 BUN 9 mg/dL (8-23) 06/12/22 03:30 Creatinine 0.7 mg/dL (0.5-0.9) 06/12/22 03:30 GFR Calculation 84.0 mL/min (90-130) L 06/12/22 03:30 Glucose 112 mg/dL (65-115) 06/12/22 03:30 Calculated Osmolality 273 mOsm/kg (285-295) L 06/12/22 03:30 Calcium 8.2 mg/dL (8.5-10.5) L 06/12/22 03:30 Magnesium 2.0 mg/dL (1.7-2.3) 06/12/22 03:30 Total Bilirubin 0.5 mg/dL (0.15-1.2) 06/11/22 06:10 AST 41 U/L (0-32) H 06/11/22 06:10 ALT 36 U/L (0-33) H 06/11/22 06:10 Alkaline Phosphatase 145 U/L (35-105) H 06/11/22 06:10 C-Reactive Protein 7.5 mg/L (0.0-4.9) H 06/11/22 06:10 Total Protein 7.3 g/dL (6.6-8.7) 06/11/22 06:10 Albumin 4.5 g/dL (3.5-5.2) 06/11/22 06:10 Globulin 2.8 g/dL (1.3-4.6) 06/11/22 06:10 Vitals Last Vital Signs Temp 97.8 F 06/13/22 08:00 Pulse 72 06/13/22 08:46 Resp 18 06/13/22 08:56 BP 137/77 06/13/22 08:00 Pulse Ox 97 06/13/22 08:46 O2 Del Method Nasal Cannula 06/13/22 08:00 O2 Flow Rate 2 06/13/22 08:46 Discharge Plan Discharge Patient Disposition: Home Health Service Condition: Stable Prescriptions: New oxycodone 5 mg capsule 5 mg PO Q8H PRN (Reason: pain) 5 Days Qty: 15 0RF Continued tramadol 50 mg tablet 50 mg PO Q6H PRN (Reason: Pain) amitriptyline 150 mg tablet 300 mg PO BEDTIME famotidine 20 mg tablet 20 mg PO BID cyclobenzaprine 5 mg tablet 5 mg PO TID PRN (Reason: Pain) memantine 5 mg tablet 5 mg PO BID biotin 5 mg Capsule 5 mg PO DAILY vitamin E 268 mg (400 unit) Capsule 268 mg PO DAILY Vitamin D3 50 mcg (2,000 unit) Capsule 50 mcg PO DAILY Discharge Orders: Discharge Order (Routine); Ordered 06/13/22 Ordered By: Martina Vieyra Other Ambulatory Orders: DME: Paresh (Order) Location: None Selected Ordered By: Martina Vieyra Referrals: [facility] [place] [Outside] [facility] ([facility]) [Outside] [facility] [Referring] - Mario Garay [Primary Care Provider] - Patient Instructions: Opioid Safety Discharge Attestations Time Spent in Discharge Care*: greater than 30 min Quality Metrics Clinical Quality Measures [ No reported AMI, CVA or VTE this stay] Coding Level of Care Code Acute Code for [facility] Diagnoses Subcapital fracture of left hip S72.012A
--- NOTE | 2022-06-13 14:41 | PC.OT ---
OT TREATMENT HELD DUE TO SCHEDULED PATIENT D/C TODAY.
== END 2022-06-13 15:54 | disposition home health service (06) | DRG 482 ==
LOC: ER 06:02 → MEDSURG 06:29
PROVIDERS: Specialist; Admitting Provider Internal Medicine; Emergency Provider Emergency Medicine; Family Provider Family Medicine; PCP Family Medicine; Visit Provider Student in an Organized Health Care Education/Training Program
PROC: 0QS704Z Reposition Left Upper Femur with Internal Fixation Device, Open Approach (ICD-10-PCS; CPT 27236; principal; 2022-06-11 13:00)
DX: S72.012A Unspecified intracapsular fracture of left femur, initial encounter for closed fracture (principal); W01.0XXA Fall on same level from slipping, tripping and stumbling without subsequent striking against object, initial encounter; M79.7 Fibromyalgia; F32.A Depression, unspecified; F41.9 Anxiety disorder, unspecified; Z79.891 Long term (current) use of opiate analgesic; Z87.891 Personal history of nicotine dependence
CPT/HCPCS: 36415; 51702; 71045; 72192; 73502; 73552; 76000; 80048; 80053; 83735; 85025; 86140; 93005; 94760; 96372; 96374; 97116; 97161; 97165; 99285; C1713; J1100; J1170; J1644; J1650; J2270; J2370; J2405; J2704; J3010; J3370; J3490; J7030

== ENCOUNTER → 2022-06-28 13:30 | Outpatient (BNVA) | payer MEDICARE, MEDICAID, SELFPAY | PROVIDERS: Family Provider Family Medicine; PCP Family Medicine; Visit Provider Nurse Practitioner Family | DX: S72.012A Unspecified intracapsular fracture of left femur, initial encounter for closed fracture (principal); Z98.890 Other specified postprocedural states; X58.XXXA Exposure to other specified factors, initial encounter | CPT/HCPCS: 73502; 99024 ==

== ENCOUNTER → 2022-08-16 13:35 | Outpatient (BNVA) | payer MEDICARE, MEDICAID, SELFPAY | PROVIDERS: Family Provider Family Medicine; PCP Family Medicine; Visit Provider Nurse Practitioner Family | DX: Z98.890 Other specified postprocedural states (principal) | CPT/HCPCS: 73502; 99024; 99213 ==